=== PATIENT | male | born 1990 | race Caucasian/White ===

== ENCOUNTER 2018-01-03 16:57 | Emergency (ER) | payer OTHER ==
--- NOTE | 2018-01-03 17:33 | Emergency Department Record ---
History of Present Illness - General Chief Complaint: Abdominal Pain Stated Complaint: ABDOMINAL PAIN Time Seen by Provider: 01/03/18 17:23 Source: Patient Mode of Arrival: Ambulatory Limitations: No limitations - History of Present Illness Initial Comments: 27 yo male presents with epigastric pain for the last many months. He reports he has been episodically bloated, burping, food intolerances such a acidic foods and caffeine. He formally was a fairly heavy daily drinker. He has been sober for 60 days until last night. He did have alcohol last night. No back pain. No blood in the stools. No vomiting. MD Complaint: Abdominal pain Onset/Timin -: Month(s) Location: Epigastric Radiation: None Migration to: No migration Severity: Mild Quality: Aching Consistency: Intermittent Improves With: Nothing Worsens With: Nothing Associated Symptoms: Denies other symptoms - Related Data Previous Rx's Medication Instructions Recorded Pantoprazole Sodium [Protonix] 20 mg PO DAILY #30 tablet. 01/03/18 Allergies Allergy/AdvReac Type Severity Reaction Status Date / Time Penicillins Allergy HIVES Verified 01/03/18 17:19 Travel Screening - Travel/Exposure Within Last 30 Days Have you traveled within the last 30 days?: No Past Medical History - SOCIAL HISTORY Smoking Status: Former smoker Alcohol Use: Rare Drug Use: None - RESPIRATORY Hx Respiratory Disorders: No - CARDIOVASCULAR Hx Cardio Disorders: No - NEURO Hx Neuro Disorders: No - GI Hx GI Disorders: No - Hx Genitourinary Disorders: No - ENDOCRINE Hx Endocrine Disorders: No - MUSCULOSKELETAL Hx Musculoskeletal Disorders: No - PSYCH Hx Psych Problems: No - HEMATOLOGY/ONCOLOGY Hx Hematology/Oncology Disorders: No Family Medical History Any Significant Family History?: Yes Hx Cancer: Mother Course Vital Signs 01/03/18 17:13 Temperature 97.7 F Pulse Rate 96 H Respiratory 18 Rate Blood Pressure 160/110 Pulse Ox 99 - Reevaluation(s) Reevaluation #1: 01/03/18 18:22 The labs were reviewed No acute changes on the CBC,CMP or Lipase He will be DC on PPI and recommend PCP for follow up in the event additional work up needed Medical Decision Making - Lab Data Result diagrams: 01/03/18 17:40 01/03/18 17:40 Disposition Disposition: Discharge Clinical Impression: Epigastric pain Disposition: Home, Self-Care Condition: (1) Good Instructions: Gastritis (ED) Additional Instructions: Call the numbers provided for a new family doctor Return or be seen if you have any worsening or new pain or concerns Avoid foods that trigger the symptoms and alcohol Prescriptions: Pantoprazole Sodium [Protonix] 20 mg PO DAILY #30 tablet. Referrals: REX WEBB [MEDICAL DOCTOR] - Forms: Patient Portal Access Time of Disposition: 18:24 Quality - Quality Measures Quality Measures: N/A - Blood Pressure Screening Does Patient Have Any of the Following: No Blood Pressure Classification: Pre-Hypertensive BP Reading Systolic Measurement: 158 Diastolic Measurement: 84 Screening for High Blood Pressure: < Pre-Hypertensive BP, F/U Documented > [ G8950] Pre-Hypertensive Follow-up Interventions: Referral to alternative/primary care provider.
[2018-01-03 17:53] LABS: BASO % 0.3 % (0-6); EOS % 0.9 % (0-6); GRAN % 79.6 % (47-80); HEMATOCRIT 45.1 % (42.0-52.0); LYMPH % 14.4 % (16-45); MEAN CELL VOLUME 82.9 fl (81-97); MEAN CORPUSCULAR HEMOGLOBIN 29.4 pg (27-33); MEAN CORPUSCULAR HGB CONC 35.5 g/dl (32-36); MEAN PLATELET VOLUME 10.2 fl (7.4-10.4); MONO % 4.8 % (0-9); PLATELET COUNT 303 K/uL (130-400); RED BLOOD COUNT 5.44 M/uL (4.40-5.70); RED CELL DISTRIBUTION WIDTH 12.3 % (11.5-14.5); WHITE BLOOD COUNT W/O DIFF 9.5 K/uL (4.2-12.2)
[2018-01-03 18:13] LABS: ALB/GLOB RATIO 2.6 (1.1-1.8); ALBUMIN 5.1 g/dL (4.0-5.0); ALKALINE PHOSPHATASE 58 U/L (40-129); ALT/SGPT 17 U/L (<41); AST/SGOT 16 U/L (10.0-50.0); BLOOD UREA NITROGEN 16 mg/dL (6-20); EST GLOMERULAR FILTRATION RATE > 60 mL/min; GLUCOSE,RANDOM 91 mg/dL (74-109); LIPASE 31 U/L (13-60); TOTAL PROTEIN 7.1 g/dL (6.6-8.7)
--- NOTE | 2018-01-05 08:20 | Emergency Department Record ---
History of Present Illness - General Chief Complaint: Abdominal Pain Stated Complaint: ABDOMINAL PAIN Time Seen by Provider: 01/03/18 17:23 Source: Patient Mode of Arrival: Ambulatory Limitations: No limitations - History of Present Illness MD Complaint: Abdominal pain Onset/Timin -: Month(s) Location: Epigastric Radiation: None Migration to: No migration Severity: Mild Quality: Aching Consistency: Intermittent Improves With: Nothing Worsens With: Nothing Associated Symptoms: Denies other symptoms - Related Data Previous Rx's Medication Instructions Recorded Pantoprazole Sodium [Protonix] 20 mg PO DAILY #30 tablet. 01/03/18 Allergies Allergy/AdvReac Type Severity Reaction Status Date / Time Penicillins Allergy HIVES Verified 01/03/18 17:19 Travel Screening - Travel/Exposure Within Last 30 Days Have you traveled within the last 30 days?: No Review of Systems Constitutional: Denies: Chills, Fever, Malaise, Weakness Eyes: Denies: Eye discharge ENT: Denies: Congestion, Throat pain Respiratory: Denies: Cough, Dyspnea, Hemoptysis, Stridor, Wheezes Cardiovascular: Denies: Chest pain, Palpitations, Syncope Endocrine: Denies: Fatigue, Polydipsia, Polyuria Gastrointestinal: Reports: As per HPI, Abdominal pain, Nausea. Denies: Constipation, Diarrhea, Hematemesis, Hematochezia, Melena, Vomiting Genitourinary: Denies: Dysuria, Frequency Musculoskeletal: Denies: Arthralgia, Back pain, Myalgia Skin: Denies: Bruising, Change in color, Rash Neurological: Denies: Headache Psychiatric: Denies: Anxiety Hematological/Lymphatic: Denies: Blood Clots, Easy bleeding, Easy bruising, Swollen glands Past Medical History - SOCIAL HISTORY Smoking Status: Former smoker Alcohol Use: Rare Drug Use: None - RESPIRATORY Hx Respiratory Disorders: No - CARDIOVASCULAR Hx Cardio Disorders: No - NEURO Hx Neuro Disorders: No - GI Hx GI Disorders: No - Hx Genitourinary Disorders: No - ENDOCRINE Hx Endocrine Disorders: No - MUSCULOSKELETAL Hx Musculoskeletal Disorders: No - PSYCH Hx Psych Problems: No - HEMATOLOGY/ONCOLOGY Hx Hematology/Oncology Disorders: No Family Medical History Any Significant Family History?: Yes Hx Cancer: Mother Physical Exam - General General Appearance: Alert, Oriented x3, Cooperative, No acute distress Limitations: No limitations - Head Head exam: Atraumatic, Normocephalic, Normal inspection - Eye Eye exam: Normal appearance, PERRL. negative: Conjunctival injection, Scleral icterus - ENT ENT exam: Normal exam, Mucous membranes moist, Normal orophraynx Ear exam: Normal external inspection Nasal Exam: Normal inspection Mouth exam: Normal external inspection Teeth exam: Normal inspection Throat exam: Normal inspection - Neck Neck exam: Normal inspection, Full ROM. negative: Tenderness - Respiratory Respiratory exam: Normal lung sounds bilaterally. negative: Respiratory distress - Cardiovascular Cardiovascular Exam: Regular rate, Normal rhythm, Normal heart sounds - GI/Abdominal GI/Abdominal exam: Soft, Normal bowel sounds. negative: Diminished bowel sounds , Distended, Guarding, Hyperactive bowel sounds, Mass, Rebound, Rigid, Tenderness - Rectal Rectal exam: Deferred - exam: Deferred - Extremities Extremities exam: Normal inspection, Full ROM, Normal capillary refill. negative: Tenderness - Back Back exam: Reports: Normal inspection, Full ROM. Denies: Muscle spasm, Rash noted, Tenderness - Neurological Neurological exam: Alert, Normal gait, Oriented X3 - Psychiatric Psychiatric exam: Normal affect, Normal mood - Skin Skin exam: Dry, Intact, Normal color, Warm Course Vital Signs 01/03/18 01/03/18 17:13 18:35 Temperature 97.7 F Pulse Rate 96 H 75 Respiratory 18 18 Rate Blood Pressure 160/110 158/84 Pulse Ox 99 98 Medical Decision Making - Lab Data Result diagrams: 01/03/18 17:40 01/03/18 17:40 Lab Results 01/03/18 01/03/18 Range/Units 17:40 17:40 WBC 9.5 (4.2-12.2) K/uL RBC 5.44 (4.40-5.70) M/uL Hgb 16.0 (14.0-18.0) gm/dl Hct 45.1 (42.0-52.0) % MCV 82.9 (81-97) fl MCH 29.4 (27-33) pg MCHC 35.5 (32-36) g/dl RDW 12.3 (11.5-14.5) % Plt Count 303 (130-400) K/uL MPV 10.2 (7.4-10.4) fl Gran % 79.6 (47-80) % Lymphocytes % 14.4 L (16-45) % Monocytes % 4.8 (0-9) % Eosinophils % 0.9 (0-6) % Basophils % 0.3 (0-6) % Sodium 141 (136-145) mmol/L Potassium 3.7 (3.4-4.5) mmol/L Chloride 102 (98-107) mmol/L Carbon Dioxide 25.0 (22-29) mmol/L Anion Gap 14.0 (7-16) BUN 16 (6-20) mg/dL Creatinine 1.0 (0.7-1.2) mg/dL Estimated GFR > 60 mL/min Random Glucose 91 (74-109) mg/dL Calcium 8.9 (8.6-10.0) mg/dL Total Bilirubin 0.60 (0.2-1.0) mg/dL AST 16 (10.0-50.0) U/L ALT 17 (<41) U/L Alkaline Phosphatase 58 (40-129) U/L Total Protein 7.1 (6.6-8.7) g/dL Albumin 5.1 H (4.0-5.0) g/dL Globulin 2.0 (1.4-4.8) gm/dL Albumin/Globulin Ratio 2.6 H (1.1-1.8) Lipase 31 (13-60) U/L Disposition Clinical Impression: Epigastric pain Disposition: Home, Self-Care Condition: (1) Good Instructions: Gastritis (ED) Additional Instructions: Call the numbers provided for a new family doctor Return or be seen if you have any worsening or new pain or concerns Avoid foods that trigger the symptoms and alcohol Prescriptions: Pantoprazole Sodium [Protonix] 20 mg PO DAILY #30 tablet. Referrals: REX WEBB [MEDICAL DOCTOR] - Forms: Patient Portal Access Quality - Quality Measures Quality Measures: N/A - Blood Pressure Screening Does Patient Have Any of the Following: No Blood Pressure Classification: Pre-Hypertensive BP Reading Systolic Measurement: 158 Diastolic Measurement: 84 Screening for High Blood Pressure: < Pre-Hypertensive BP, F/U Documented > [ G8950] Pre-Hypertensive Follow-up Interventions: Referral to alternative/primary care provider.
== END 2018-01-03 18:36 | disposition home or self-care (01) ==
LOC: ER 16:57
DX: R10.13 Epigastric pain (principal); R11.0 Nausea; Z87.891 Personal history of nicotine dependence
CPT/HCPCS: 80053; 83690; 85025; 99283

== ENCOUNTER 2018-09-27 10:53 | Emergency (ER) | payer OTHER ==
--- NOTE | 2018-09-27 11:37 | Emergency Department Record ---
History of Present Illness - General Chief complaint: Nausea, Vomiting, Diarrhea Stated complaint: GAS LEAK Time Seen by Provider: 09/27/18 11:17 Source: Patient Mode of Arrival: Ambulatory Limitations: No limitations - History of Present Illness Initial comments: pt is here for diarrhea and not feeling well. pt and girlfriend have been exposed to carbon monoxide. consumers is at their place right now. girlfriend is also sick. they both had [employer] mcnuggets prior to getting sick. MD complaint: Diarrhea Onset/Timin -: Days(s) Improves with: Bowel movement Associated Symptoms: Denies other symptoms - Related Data Home Medications Medication Instructions Recorded Confirmed Last Taken No Home Med [NO HOME MEDS] 09/27/18 09/27/18 Unknown Allergies Allergy/AdvReac Type Severity Reaction Status Date / Time Penicillins Allergy HIVES Verified 09/27/18 11:03 Travel Screening - Travel/Exposure Within Last 30 Days Have you traveled within the last 30 days?: No - Travel/Exposure Within Last Year Have you traveled outside the [place] in the last year?: No - Additonal Travel Details Have you been exposed to anyone with a communicable illness?: No - Travel Symptoms Symptom Screening: None Review of Systems Reviewed: No additional complaints except as noted below Constitutional: Reports: As per HPI. Denies: Chills, Fever, Malaise, Night sweats, Weakness, Weight change Eyes: Reports: As per HPI. Denies: Eye discharge, Eye pain, Photophobia, Vision change ENT: Reports: As per HPI. Denies: Congestion, Dental pain, Ear pain, Epistaxis , Hearing loss, Throat pain Respiratory: Reports: As per HPI. Denies: Cough, Dyspnea, Hemoptysis, Stridor, Wheezes Cardiovascular: Reports: As per HPI. Denies: Arrhythmia, Chest pain, Dyspnea on exertion, Edema, Murmurs, Orthopnea, Palpitations, Paroxysmal nocturnal dyspnea, Rheumatic Fever, Syncope Endocrine: Reports: As per HPI. Denies: Fatigue, Heat or cold intolerance, Polydipsia, Polyuria Gastrointestinal: Reports: As per HPI. Denies: Abdominal pain, Constipation, Diarrhea, Hematemesis, Hematochezia, Melena, Nausea, Vomiting Genitourinary: Reports: As per HPI. Denies: Dysuria, Frequency, Hematuria, Incontinence, Retention, Testicular pain, Testicular mass, Urgency Musculoskeletal: Reports: As per HPI. Denies: Arthralgia, Back pain, Gout, Joint swelling, Myalgia, Neck pain Skin: Reports: As per HPI. Denies: Bruising, Change in color, Change in hair/ nails, Lesions, Pruritus, Rash Neurological: Reports: As per HPI. Denies: Abnormal gait, Confusion, Headache, Numbness, Paresthesias, Seizure, Tingling, Tremors, Vertigo, Weakness Psychiatric: Reports: As per HPI. Denies: Anxiety, Auditory hallucinations, Depression, Homicidal thoughts, Suicidal thoughts, Visual hallucinations Hematological/Lymphatic: Reports: As per HPI. Denies: Anemia, Blood Clots, Easy bleeding, Easy bruising, Swollen glands Past Medical History - SOCIAL HISTORY Smoking Status: Former smoker Alcohol Use: Occasional Drug Use: None - RESPIRATORY Hx Respiratory Disorders: No - CARDIOVASCULAR Hx Cardio Disorders: No - NEURO Hx Neuro Disorders: No - GI Hx GI Disorders: No - Hx Genitourinary Disorders: No - ENDOCRINE Hx Endocrine Disorders: No - MUSCULOSKELETAL Hx Musculoskeletal Disorders: No - PSYCH Hx Psych Problems: No - HEMATOLOGY/ONCOLOGY Hx Hematology/Oncology Disorders: No Family Medical History Any Significant Family History?: Yes Hx Cancer: Mother Physical Exam - General General Appearance: Alert, Oriented x3, Cooperative, No acute distress - Head Head exam: Normal inspection - Eye Eye exam: Normal appearance, PERRL, EOMI Pupils: Normal accommodation - ENT ENT exam: Normal exam, Mucous membranes moist, Normal external ear exam, Normal orophraynx Ear exam: Normal external inspection. negative: External canal tenderness Nasal Exam: Normal inspection. negative: Discharge, Sinus tenderness Mouth exam: Normal external inspection, Tongue normal Teeth exam: Normal inspection. negative: Dental caries Throat exam: Normal inspection. negative: Tonsillar erythema, Tonsillar exudate - Neck Neck exam: Normal inspection, Full ROM. negative: Tenderness - Respiratory Respiratory exam: Normal lung sounds bilaterally. negative: Respiratory distress - Cardiovascular Cardiovascular Exam: Regular rate, Normal rhythm, Normal heart sounds - GI/Abdominal GI/Abdominal exam: Soft, Normal bowel sounds. negative: Tenderness - Rectal Rectal exam: Deferred - exam: Deferred - Extremities Extremities exam: Normal inspection, Full ROM, Normal capillary refill. negative: Tenderness - Back Back exam: Reports: Normal inspection, Full ROM. Denies: Muscle spasm, Rash noted, Tenderness - Neurological Neurological exam: Alert, CN II-XII intact, Normal gait, Oriented X3 - Psychiatric Psychiatric exam: Normal affect, Normal mood - Skin Skin exam: Dry, Intact, Normal color, Warm Course Vital Signs 09/27/18 11:05 Temperature 97.9 F Pulse Rate 68 Respiratory 18 Rate Blood Pressure 139/88 Pulse Ox 100 Medical Decision Making - Lab Data Result diagrams: 09/27/18 11:38 09/27/18 11:38 Disposition Disposition: Discharge Clinical Impression: Carbon monoxide poisoning Qualifiers: Encounter type: initial encounter Injury intent: accidental or unintentional Qualified Code(s): T58.91XA - Toxic effect of carbon monoxide from unspecified source, accidental (unintentional), initial encounter Disposition: Home, Self-Care Condition: (1) Good Instructions: Carbon Monoxide Poisoning (ED), Carbon Monoxide Poisoning in Children (ED) Additional Instructions: follow up with family doctor. return sooner if worse. have child checked out. have living quarters and car checked prior to going back in Forms: Patient Portal Access Quality - Quality Measures Quality Measures: N/A - Blood Pressure Screening Does Patient Have Any of the Following: No Blood Pressure Classification: Pre-Hypertensive BP Reading Systolic Measurement: 139 Diastolic Measurement: 88 Screening for High Blood Pressure: < Pre-Hypertensive BP, F/U Documented > [ G8950] Pre-Hypertensive Follow-up Interventions: Follow-up with rescreen every year.
[2018-09-27 11:52] LABS: BASO % 0.5 % (0-6); EOS % 0.2 % (0-6); GRAN % 78.7 % (47-80); HEMATOCRIT 45.2 % (42.0-52.0); HEMOGLOBIN 15.7 gm/dl (14.0-18.0); MEAN CELL VOLUME 84.3 fl (81-97); MEAN CORPUSCULAR HEMOGLOBIN 29.3 pg (27-33); MEAN CORPUSCULAR HGB CONC 34.7 g/dl (32-36); MEAN PLATELET VOLUME 10.3 fl (7.4-10.4); MONO % 6.6 % (0-9); PLATELET COUNT 288 K/uL (130-400); RED BLOOD COUNT 5.36 M/uL (4.40-5.70); RED CELL DISTRIBUTION WIDTH 12.4 % (11.5-14.5); WHITE BLOOD COUNT W/O DIFF 4.4 K/uL (4.2-12.2)
[2018-09-27 11:54] LABS: URINE APPEARANCE SL CLOUDY; URINE BILIRUBIN NEGATIVE (NEGATIVE); URINE BLOOD NEGATIVE (NEGATIVE); URINE COLOR YELLOW; URINE GLUCOSE (UA) NEGATIVE (NEGATIVE); URINE KETONE TRACE (NEGATIVE); URINE LEUKOCYTE ESTERASE NEGATIVE (NEGATIVE); URINE NITRITE NEGATIVE (NEGATIVE); URINE PROTEIN NEGATIVE (NEGATIVE); URINE UROBILINOGEN 0.2 E.U./dL (0.20 - 1.00)
[2018-09-27 12:20] LABS: BLOOD UREA NITROGEN 12 mg/dL (6-20); EST GLOMERULAR FILTRATION RATE > 60 mL/min; TOTAL PROTEIN 6.8 g/dL (6.6-8.7)
[2018-09-27 12:22] LABS: GLUCOSE,RANDOM 90 mg/dL (74-109)
[2018-09-27 12:25] LABS: ALB/GLOB RATIO 2.6 (1.1-1.8); ALBUMIN 4.9 g/dL (4.0-5.0); ALKALINE PHOSPHATASE 56 U/L (40-129); ALT/SGPT 20 U/L (<41); AST/SGOT 17 U/L (10.0-50.0)
== END 2018-09-27 13:29 | disposition home or self-care (01) ==
LOC: ER 10:53
DX: T58.91XA Toxic effect of carbon monoxide from unspecified source, accidental (unintentional), initial encounter (principal); R11.2 Nausea with vomiting, unspecified; R19.7 Diarrhea, unspecified; Z87.891 Personal history of nicotine dependence
CPT/HCPCS: 80053; 81003; 82375; 85025; 99283